=== PATIENT | male | born 1960 | race Caucasian/White ===

== ENCOUNTER 2016-09-23 12:38 | Emergency (ER) | payer OTHER ==
[2016-09-23 12:44] VITALS: BMI 27.9
[2016-09-23 12:46] VITALS: TEMP 97.3
[2016-09-23] MEDS ORDERED: ONDANSETRON HCL 4 MG ODT TAB PO ONE (13:02)
[2016-09-23] MEDS ORDERED: HYDROmorphone 1 MG INJECTION IM ONE (13:02)
--- NOTE | 2016-09-23 13:02 | EDPRACDOC ---
- General Chief Complaint: Upper Extremity Injury Stated Complaint: FALL @WORK Time Seen by Provider: 09/23/16 12:59 Information Source: Patient - History of Present Illness Onset: THIS AM HPI: SLIP ON ICE AT [address] SEVERE PAIN LEFT ARM. PT IS DIABETIC. SOME TINGING LEFT HAND. PT IS RIGHT HANDED. Pain Severity: Reports: Severe Allergies/Adverse Reactions: Allergies No Known Allergies Allergy (Verified 09/23/16 12:44) Home Medications: Ambulatory Orders Oxycodone HCl [Roxicodone] 5 - 10 mg PO Q4 PRN #25 tablet 09/23/16 ED Past Medical History - Patient Medical History Systemic History: Reports: Diabetes - Physical Exam Last recorded Vital Signs: Last Vital Signs Temp 97.3 F L 09/23/16 12:44 Pulse 98 09/23/16 12:44 Resp 22 09/23/16 12:44 BP 151/80 09/23/16 12:44 Pulse Ox 98 09/23/16 12:44 Oxygen Pulse Oxygen Saturation 98 O2 Device Oxygen Flow Rate Fraction of Inspired Oxygen ( FIO2) - Departure Yes I personally saw and evaluated the patient. Disposition: Home Condition: Stable Final Diagnosis: Fracture of humerus, proximal, left, closed Qualifiers: Encounter type: initial encounter Fracture morphology: other fracture Fracture alignment: displaced Qualified Code(s): S42.292A - Other displaced fracture of upper end of left humerus, initial encounter for closed fracture Instructions: RICE: Routine Care for Injuries, Arm Fracture in Adults (ED) Education/Counseling Given To: Patient Education/Counseling Given Regarding: Diagnosis, Treatment, Prognosis, Follow Up Referrals: Koffi Leija MD [Staff Physician] - 09/25/16 9:30 am Prescriptions: Oxycodone HCl [Roxicodone] 5 - 10 mg PO Q4 PRN #25 tablet PRN Reason: Pain - Physician Consulted Orthopedics Time Called: 13:28 Provider Called: Koffi Leija Time [employer] Returned Call: 13:28 Consult Reason: HE LOOKED AT FILMS. REQUESTS CT SHOULDER. SLING. F/U SATURDAY.
[2016-09-23 13:03] VITALS: BP 159/91; PULSE 96
--- NOTE | 2016-09-23 13:48 | DIRPT ---
CLINICAL DATA: Status post fall on ice with left upper arm injury. Pain. Initial encounter. EXAM: LEFT HUMERUS - 2+ VIEW COMPARISON: None. FINDINGS: There is a mildly comminuted fracture at the junction of the metaphysis and diaphysis of the left humerus. The fracture shows mild medial and anterior displacement. It does not extend into the humeral head. No other abnormality is identified. IMPRESSION: Mildly comminuted proximal left humerus fracture is described above. Electronically Signed By: Mat Mcgovern M.D. On: 09/23/2016 13:45
--- NOTE | 2016-09-23 14:49 | DIRPT ---
CLINICAL DATA: Status post fall on the ice today with a left upper arm fracture. Pain. Initial encounter. EXAM: CT OF THE UPPER LEFT EXTREMITY WITHOUT CONTRAST TECHNIQUE: Multidetector CT imaging of the left shoulder was performed according to the standard protocol. COMPARISON: Plain films earlier today. FINDINGS: As seen on the comparison plain films, the patient has a mildly comminuted fracture of the surgical neck of the left humerus. The fracture is oblique in orientation extending from the inferior most aspect of the greater tuberosity in a medial and inferior orientation through the proximal most diaphysis. The fracture is impacted approximately 2 cm with 1.1 cm medial and 1.1 cm anterior displacement of the distal fragment. The fracture does not involve the lesser tuberosity. No other fracture is identified. Acromioclavicular degenerative change is noted. Imaged lung parenchyma is clear. IMPRESSION: Mildly displaced and impacted surgical neck fracture of the left humerus as described above. Electronically Signed By: Mat Mcgovern M.D. On: 09/23/2016 14:46
== END 2016-09-23 15:15 | disposition home or self-care (01) ==
LOC: ED 12:38
DX: S42.292A Other displaced fracture of upper end of left humerus, initial encounter for closed fracture (principal); W00.0XXA Fall on same level due to ice and snow, initial encounter; Y93.01 Activity, walking, marching and hiking; Y99.0 Civilian activity done for income or pay
CPT/HCPCS: 73060; 73200; 96372; 99283; J1170; J3490